=== PATIENT | female | born 1995 | race Caucasian/White ===

== ENCOUNTER 2017-11-10 05:52 | Day surgery (SDC) | payer OTHER ==
[~2017-11-10] VITALS: Ht 157.5 cm; Wt 64.9 kg
[~2017-11-10 05:52] MED LIST: CIPR-344 PO; HYDR-4309 PO; PROM-110 PO; SERT-184 PO
[2017-11-10 06:28] VITALS: BP 119/63
[2017-11-10] MEDS ORDERED: ceFAZolin(*) 1 GM VIAL 1 GM in NS(*) 0.9% 100 ML ADDVANT BAG 100 ML IVPB ONE (06:30)
[2017-11-10] MEDS ORDERED: fentaNYL CITR 100 MCG/2 ML AMP ONE ×3 (06:39→08:34)
[2017-11-10] MEDS ORDERED: DEXAMETHASONE SOD PHOS 10MG/ML ONE (06:40)
[2017-11-10] MEDS ORDERED: ONDANSETRON 4 MG/2 ML VIAL ONE (06:40)
[2017-11-10] MEDS ORDERED: PROPOFOL EMUL(*) 10MG/ML 20 ML 20 ML ONE (06:40)
[2017-11-10] MEDS ORDERED: LIDOCAINE MPF 1% 5 ML VIAL ONE (06:40)
[2017-11-10 06:48] LABS: PLATELET COUNT, AUTOMATED 262 K/uL (150-450)
[2017-11-10] MEDS ORDERED: LIDOCAINE 2% JELLY 5 ML TUBE ONE (06:52)
[2017-11-10] MEDS ORDERED: TRIAMCINOLONE ACE(*) 40 MG/ML 1 ML ONE (07:53)
[2017-11-10] MEDS ORDERED: SUGAMMADEX SOD 500 MG/5 ML SDV ONE (08:10)
[2017-11-10] MEDS ORDERED: PER PO (08:17)
[2017-11-10] MEDS ORDERED: LIDO15SO2 PO (08:22)
[2017-11-10] MEDS ORDERED: AMOX500T10 PO (08:23)
[2017-11-10] MEDS ORDERED: MIDAZOLAM 2 MG/2 ML VIAL IVP PRN (08:55)
[2017-11-10] MEDS ORDERED: NORMOSOL R SOLN(*) 1000 ML BAG 1,000 ML IV PRN (08:55)
[2017-11-10] MEDS ORDERED: FAMOTIDINE 20 MG TAB PO ONE (08:55)
[2017-11-10] MEDS ORDERED: LIDOCAINE/SOD BICARB 8.4% SYR ID ONE (08:55)
[2017-11-10 09:00] VITALS: BP 124/86
[2017-11-10] MEDS ORDERED: NS 0.9% 20 ML SDV 20 ML ONE (09:08)
[2017-11-10 09:28] VITALS: BP 126/91
[2017-11-10 09:59] VITALS: BP 119/91
[2017-11-10 10:03] VITALS: BP 121/83
[2017-11-10 10:04] VITALS: BP 122/85
--- NOTE | 2017-11-11 14:34 | OPERATIVE REPORT 1 ---
EVENT DATE: November 10, 2017 SURGEON: Roe Mahoney MD ANESTHESIOLOGIST: Edgar Cleveland MD ANESTHESIA: LMA. PROCEDURE PERFORMED Tonsillectomy. PREOPERATIVE DIAGNOSES 1. Left tonsil tag. 2. Recurrent streptococcal tonsillitis. POSTOPERATIVE DIAGNOSES 1. Left tonsil tag. 2. Recurrent streptococcal tonsillitis. INDICATIONS Please refer to the preoperative note. DESCRIPTION OF PROCEDURE The patient was positively identified in the preoperative area. Risks again explained include, but were not limited to bleeding, infection, and those associated with anesthesia. She acknowledged understanding of those risks. She was then brought back to the operative suite, placed supine on the operative table, and anesthesia was administered. Once asleep, patient was positioned, prepped, and draped in the usual sterile fashion, a McIvor mouth gag was placed in the patient's oral cavity. A red rubber catheter was placed through the right nostril and utilized to suspend the soft palate. The patient was noticed to have 2+ tonsils and a left tonsil tag. The right tonsil was then grasped with a curved Allis forceps and carefully dissected from the lateral pharyngeal wall with Bovie electrocautery. In a similar fashion, the contralateral tonsil was removed. Hemostasis was further obtained with suction Bovie electrocautery. Approximately 0.5 mL of Kenalog 40 was injected into the uvula to minimize postoperative edema as this was manipulated during the case. Estimated blood loss 25 mL. No complications. MTDD
== END 2017-11-10 09:00 | disposition home or self-care (01) ==
LOC: OR 05:52
PROVIDERS: ATTEND Otolaryngology
DX: J03.01 Acute recurrent streptococcal tonsillitis (principal); J35.8 Other chronic diseases of tonsils and adenoids
CPT/HCPCS: 36415; 42826; 81025; 85025; 88304; J0690; J1100; J2001; J2250; J2405; J2704; J3010; J3301; J7050